=== PATIENT | male | born 2000 | race Caucasian/White ===

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

== ENCOUNTER 2022-06-19 19:09 | Emergency (ER) | payer OTHER, SELFPAY ==
[2022-06-19 19:15] VITALS: BP 140/97; PULSE 83; RESP 16; TEMP 36.2; O2SAT 100
--- NOTE | 2022-06-19 19:48 | ED.EAR ---
HPI - Ear Problem General Chief complaint: Ear Stated complaint: lt ear clogged/pain Time Seen by Provider: 06/19/22 19:30 Source: patient, RN notes reviewed and old records reviewed Mode of arrival: ambulatory Limitations: no limitations History of Present Illness HPI Narrative: 22-year-old male who presents to [facility] with complaints of pain to his left ear with feeling pressure decreased hearing feeling clogged which started at short interval prior to his arrival. Patient reports that he put hydrogen peroxide in his ear and made his symptoms worse. Patient has not taken any OTC medication for his discomfort. Patient reports that he had a left tympanoplasty of his ear when was young because of hole in ear. Patient denies any headache, fevers, cough, nasal congestion or drainage or any sore throat. MD Complaint: ear pain, decreased hearing and other (feeling clogged) Location: left ear Duration: constant Discharge from ear: Reports no Associated symptoms ear: decreased hearing Treatment prior to arrival: other (peroxide placed in ear) Related Data Allergies Allergy/AdvReac Type Severity Reaction Status Date / Time No Known Allergies Allergy Verified 06/19/22 19:14 Review of Systems Review of Systems: CONSTITUTIONAL: Denies fever, chills, or sweats. EYES: Denies visual changes, redness, or discharge. ENT: Denies rhinorrhea, congestion, sore throat, positive for left ear otalgia. Clogged feeling with decreased hearing CARDIOVASCULAR: Denies chest pain, palpitations, or edema. RESPIRATORY: Denies cough or dyspnea. GASTROINTESTINAL: Denies abdominal pain, nausea, vomiting, or diarrhea. GENITOURINARY: Denies dysuria or hematuria. SKIN: Denies rash or itching. MUSCULOSKELETAL: Denies back pain, joint pain, or myalgia. NEUROLOGIC: Denies headache, numbness, or weakness. PSYCHIATRIC: Denies anxiety or depression. All systems reviewed & are unremarkable except as noted in HPI and below PMFSH Past Medical History Medical History (Updated 06/19/22 @ 20:12 by Stephanie Maguire NP) History of ear infections as a child Surgical History Surgical History (Updated 06/19/22 @ 20:05 by Stephanie Maguire NP) History of tympanoplasty of left ear Family History Family History (Updated 06/19/22 @ 20:05 by Stephanie Maguire NP) Grandparent Family history of mental disorder Malignant neoplasm of prostate Hypertension Mother Family history of mental disorder Social History Social History Smoking status: Never smoker Alcohol intake: never Comments At time of signature, agree with nursing past medical, surgical, social and family history. There is no relevant family history pertinent to the presenting complaint Exam Narrative: GENERAL: Well-appearing, well-nourished, and in no acute distress. HEAD: Normocephalic, atraumatic. EYES: PERRLA and EOMI. ENT: Nares clear, no rhinorrhea or epistaxis. Mucous membranes moist.Left TM red and ear canal excoriated, Righ TM normal with good light reflex, throat pink with no lesions or swelling NECK: Supple.no lymphadenopathy CHEST: Clear to auscultation. No respiratory distress. no cough noted [id number] on room air HEART: Regular rate and rhythm. No murmur heard. Normal peripheral pulses. ABDOMEN: Soft, nontender, nondistended, normal active bowel sounds. EXTREMITIES: Normal range of motion. No edema. SKIN: Warm, dry, no rash. NEURO: No focal deficits. Alert and oriented x3. Course Course Emergency Course: Patient is aware of diagnosis, understands and agrees to treatment plan.? Anticipatory guidance given.? Patient agrees to follow-up as directed and is aware of reasons to seek care at the emergency department. Portions of this record may have been created with voice recognition software Level of Care: Express Care Visit Vital Signs Vital signs: Vital Signs Temperature 36.2 C L 06/19/22 19:15 Pulse Rate 83 03/2
== END 2022-06-19 19:59 | disposition home or self-care (01) ==
PROVIDERS: Emergency Provider Registered Nurse; PCP Family Medicine
DX: H60.312 Diffuse otitis externa, left ear (principal); H65.02 Acute serous otitis media, left ear
CPT/HCPCS: 99213; G0463

== ENCOUNTER 2024-10-27 19:45 | Emergency (ER) | payer BC, SELFPAY ==
--- NOTE | ~2024-10-27 | XR_ITS ---
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 COMPARISON: None TECHNIQUE: 3 views of the right foot were performed FINDINGS: No acute fracture or dislocation is appreciated. No significant degenerative disease is noted. The base of the fifth metatarsal is intact. No calcaneal spur is noted. Significant soft tissue swelling is identified within the area of clinical concern (along the dorsum of the forefoot). Fixation hardware is identified within the distal tibia and fibula. IMPRESSION: Significant soft tissue swelling, without acute fracture. Reviewed, dictated and finalized at location A.
--- NOTE | 2024-10-27 19:47 | ED.LOWEXIN ---
HPI - Extremity Injury (Lower) General Chief Complaint: Extremity Injury, Lower Stated Complaint: Injured Foot Time Seen by Provider: 10/27/24 19:59 Source: patient, RN notes reviewed and old records reviewed Mode of arrival: ambulatory Limitations: no limitations History of Present Illness HPI Narrative: 24-year-old male presents to the [facility] with right foot pain. States that he dropped a weight in his foot just prior to arrival. Dropped 10 lb free weight on the top of his foot while wearing issue Hematoma noted. No bleeding noted. No open wounds No treatment prior to arrival Onset (ago): minute(s) (25) Related Data Allergies Allergy/AdvReac Type Severity Reaction Status Date / Time amoxicillin AdvReac Mild Hives Verified 09/18/23 11:25 Review of Systems Review of Systems: All systems reviewed & are unremarkable except as noted in HPI and below Constitutional: Constitutional: Reports no additional constitutional complaints Musculoskeletal: Musculoskeletal: Reports as per HPI and Reports other (Dorsal foot pain, hematoma) Integumentary/Breasts: Skin/Breast: Reports system reviewed and no additional complaints, except as docu PMFSH Past Medical History Medical History Perforation of tympanic membrane of left ear due to otitis media History of ear infections as a child Surgical History Surgical History History of tympanoplasty of left ear Family History Family History Grandparent Family history of mental disorder Malignant neoplasm of prostate Hypertension Mother Family history of mental disorder Social History Social History Smoking status: Never smoker Alcohol intake: never Alcohol use details: occasionally Substance use: never Substance use type: does not use Do You Feel Safe in your Home?: Yes Lack of Transportation: No Lack of Food: Never True Current Housing: I Have Housing Concerned About Future Housing: No Difficulty Paying Gas/Electric Bills: No Currently Unemployed: No Education: High School Diploma/GED Difficulty w/ Childcare or Family Care: No Comments At the time of my signature, I reviewed and agree with the nursing past medical, surgical, social, and family history. There is no relevant family history pertinent to the patient complaint. Exam Const: General: cooperative, healthy appearing, comfortable, no acute distress, well developed, alert and well nourished Nutritional Appearance: well nourished Orientation/consciousness: patient oriented x3 Limitations: no limitations HENMT: Head: normal to inspection Eyes: General: appearance normal, both eyes and all related structures Alignment and Position: alignment normal Neck: Neck: normal visual inspection, full ROM, no lymphadenopathy and no meningeal signs Chest: Chest palpation & inspection: normal inspection of the chest Resp: Effort & Inspection: normal respiratory effort and able to speak in complete sentences Cardio: Rate: regular rate Skin: General skin exam: normal color and no rashes or lesions noted Neuro: General: patient oriented x3, gait normal, moves all extremities and no meningeal signs Cognition (Neuro): normal cognition Speech: normal speech Gait exam (Neuro): Normal gait present Extrem: General: normal to inspection, full ROM, capillary refill normal and normal gait Right lower extremity: full ROM and foot Details: normal capillary refill, tenderness Location: of the dorsal foot, toes with normal ROM, ecchymosis (Large hematoma dorsal aspect) and vascular exam Details: dorsalis pedis pulse present and normal capillary refill; no crepitus and no foreign bodies Psych: Appearance: grossly normal and well kempt Mental Status: mental status grossly normal Speech and movement: Normal speech and movement present and Clear speech present Affect: normal affect Attitude: cooperative Course Course Level of Care: Express Care Visit Vital Signs Vital signs: Vital Signs Temperature 98.2 F 10/27/24 19:52 Pulse Rate 86 10/27/24 19:52 Respiratory Rate 18 10/27/24 19:52 Blood Pressure 134/79 10/27/24 19:52 Pulse Oximetry 99 10/27/24 19:52 Oxygen Delivery Room Air 10/27/24 19:52 Temperature 98.2 F 10/27/24 19:52 Pulse Rate 86 10/27/24 19:52 Respiratory Rate 18 10/27/24 19:52 Blood Pressure 134/79 10/27/24 19:52 Pulse Oximetry 99 10/27/24 19:52 Oxygen Delivery Room Air 10/27/24 19:52 Reviewed MDM - Extremity Injury (Lower) MDM Narrative Medical decision making narrative: Patient sitting in exam room. Patient is nontoxic, vitals stable. Patient presents with foot pain after dropping a 10 lb weight on his foot. X-ray negative Patient appropriate for outpatient treatment with close follow-up Discharge instructions reviewed with patient, as well as provided in writing per nursing staff. The instructions also include specific and strict return/GO TO THE ER as well as f/u information. All questions have been answered, and the patient deny any further questions with discharge and discharge plan. Some parts of this dictation were generated by voice recognition software and may contain typographical and/or grammatical inaccuracies. 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 COMPARISON: None TECHNIQUE: 3 views of the right foot were performed FINDINGS: No acute fracture or dislocation is appreciated. No significant degenerative disease is noted. The base of the fifth metatarsal is intact. No calcaneal spur is noted. Significant soft tissue swelling is identified within the area of clinical concern (along the dorsum of the forefoot). Fixation hardware is identified within the distal tibia and fibula. IMPRESSION: Significant soft tissue swelling, without acute fracture. Critical Care Time Critical Care Time Critical Care Time: No Discharge Plan Discharge Clinical Impression: Hematoma of right foot Patient Disposition: Home Condition: Stable Instructions: Antibiotic Form, Contusion in Adults (ED), Hematoma (ED) Additional Instructions: Your Xray did not show a fracture. Wear good supportive shoes at all times. Ice should be applied to help reduce swelling. It can be used for 20 to 30 minutes, every 2-3 hours while awake. Do not apply ice directly to your skin. [id number] will help reduce the swelling, help with pain You can alternate ibuprofen 600mg and Tylenol 650mg every 4 hours as needed for pain Please schedule a follow-up visit with your personal physician for further evaluation and treatment within 2 weeks especially if symptoms persist. For new or worsening symptoms go directly to the emergency room Patient Language: Romanian Prescriptions: No Action amlodipine 2.5 mg tablet 2.5 mg PO DAILY Qty: 30 1RF hydrocortisone acetate [Anusol-HC] 25 mg suppository 25 mg RECTAL DAILY Qty: 12 2RF Follow-up/Referrals: PHYSICIAN,KENO WRITER / RUNNER [Primary Care Provider] - Stand Alone Forms: Work/School Release IP
[2024-10-27 19:52] VITALS: BP 134/79; PULSE 86; RESP 18; TEMP 36.8; O2SAT 99
== END 2024-10-27 20:46 | disposition home or self-care (01) ==
PROVIDERS: Emergency Provider Nurse Practitioner
DX: S90.31XA Contusion of right foot, initial encounter (principal); W20.8XXA Other cause of strike by thrown, projected or falling object, initial encounter
CPT/HCPCS: 73630; 99213; G0463